=== PATIENT | female | born 1980 | race African-American/Black ===

== ENCOUNTER 2016-05-28 19:57 | Emergency (ER) | payer OTHER ==
[~2016-05-28] VITALS: Ht 167.6 cm; Wt 102.9 kg
[2016-05-28 20:08] VITALS: Ht 167.6 cm; Wt 102.9 kg
[2016-05-28] MEDS ORDERED: KETOROLAC 60 MG INJ IM STA (21:41)
[2016-05-28 21:58] VITALS: BP 128/56; PULSE 78; RESP 16
[2016-05-28] MEDS ORDERED: DEXAMETHASONE 10 MG/ML 1 ML INJ IM ONE (22:00)
[2016-05-28] MEDS ORDERED: IBUP-1542 PO (22:58)
--- NOTE | 2016-05-28 23:12 | ERD ---
ER Documentation Chief Complaint Date/Time DATE: 05/28/16 TIME: 23:09 Chief Complaint left elbow insectbite 2 hours ago, tingling sensation, swelling, numbness HPI 5-year-old female with a past medical history of asthma presents the ED complaining of a possible insect bite that occurred to her left elbow. States that she was driving her car and her windows were down and she felt like a paper cut sensation in her left elbow. States that the pain is itching and feels like a burning sensation. States that she started to have upper arm and lower arm pain that radiated from her elbow. States that it feels like a tingling sensation. Denies any chest pain, shortness of breath, abdominal pain , nausea, vomiting, loss of sensation, loss of range of motion, weakness, numbness or tingling. ROS All systems reviewed and are negative except as per history of present illness. Medications Home Meds Active Scripts Ibuprofen* (Motrin*) 600 Mg Tab, 600 MG PO Q6, #30 TAB Prov:NETO YOUNGBLOOD PA-C 05/28/16 Allergies Allergies: Coded Allergies: No Known Allergy (Unverified , 05/28/16) PMhx/Soc History of Surgery: Yes ( X 5; TUBAL LIGATION.) Anesthesia Reaction: No Hx Neurological Disorder: No Hx Respiratory Disorders: No Hx Cardiac Disorders: No Hx Psychiatric Problems: No Hx Miscellaneous Medical Probl: Yes (DEPRESSION DX; NOT ON MEDS.) Hx Alcohol Use: Yes Hx Substance Use: No Hx Tobacco Use: Yes Smoking Status: Current every day smoker Physical Exam Vitals Vital Signs Date Time Temp Pulse Resp B/P Pulse Ox O2 Delivery O2 Flow Rate FiO2 05/28/16 21:58 78 16 128/56 100 Room Air 05/28/16 20:08 98.5 101 20 119/56 98 Physical Exam Const: [id number], well-nourished. In no acute distress. Head: Atraumatic, normocephalic Eyes: Normal Conjunctiva without injection ENT: Normal external ear, nose and mouth. Neck: Full range of motion. No meningismus. Resp: Clear to auscultation bilaterally. No wheezing, rhonchi, rales, or crackles. No accessory muscle use. No retractions. Cardio: Regular rate and rhythm, no murmurs Skin: No petechiae or rashes. 3 cm fluid-filled firm cystlike lesion noted on the left posterior elbow near the olecranon. No warmth to touch. No erythema. No edema. No purulent discharge noted. Back: No midline tenderness. No CVA tenderness. Ext: No cyanosis, or edema. Cap refill less than 2 seconds. Distal pulses intact bilaterally. Neur: Awake and alert. Normal gait and coordination. Muscle strength 5/5. Sensation intact bilaterally. Psych: Normal Mood and Affect Results 24 hrs Current Medications Medications (Trade) Dose Ordered Sig/Layse Route PRN Reason Start Time Stop Time Status Last Admin Dose Admin Dexamethasone (Decadron) 10 mg ONCE ONCE IM 05/28/16 22:00 05/28/16 22:01 DC 05/28/16 22:09 Ketorolac Tromethamine (Toradol) 60 mg ONCE STAT IM 05/28/16 21:41 05/28/16 21:42 DC 05/28/16 22:09 Procedures/MDM This is a 35-year-old female with a past medical history of asthma presents to the ED with a firm like cystic lesion noted on her left elbow that patient states is a insect bite. Patient is afebrile nontoxic appearing. Patient has normal vital signs. Case was discussed with my supervising physician, Dr. Bazan who recommended the following treatment with Toradol and Decadron for the cyst like lesion she visualized. Patient was strictly instructed to not pop the cyst like lesion. Warm compresses were recommended. This could likely be secondary to an insect bite. Low suspicion for meningococcemia, allergic contact dermatitis, urticaria, cutaneous candidiasis, eczema, scabies, tinea infection, erythema multiforme, psoriasis, gangrene, SJS/TEN, sepsis, cellulitis , septic arthritis, necrotizing fascitis, or other emergent conditions. Discharge medications: Ibuprofen Follow up with primary care physician in 1-2 days. Instructed patient to return to the ED sooner for any worsening symptoms. Patient's questions were answered. Patient understood and agreed with discharge plan. Patient discharged stable. Departure Diagnosis: Primary Impression: Insect bite Encounter type: initial encounter Qualified Code: W57.XXXA - Insect bite, initial encounter Condition: Stable Patient Instructions: Insect Bites and Stings Additional Instructions: Warm compresses recommened. Do not pop the cyst. Do not pick at the cyst. Do not scratch at the cyst. FOLLOW UP WITH YOUR PRIMARY CARE PHYSICIAN TOMORROW.Return to this facility if you are not improving as expected. NETO YOUNGBLOOD PA-C May 28, 2016 23:12
== END 2016-05-28 23:09 | disposition home or self-care (01) ==
LOC: FTE 19:57
DX: S50.362A Insect bite (nonvenomous) of left elbow, initial encounter (principal); F17.210 Nicotine dependence, cigarettes, uncomplicated; W57.XXXA Bitten or stung by nonvenomous insect and other nonvenomous arthropods, initial encounter; Y92.9 Unspecified place or not applicable
CPT/HCPCS: 96372; J1100; J1885; Z7502